=== PATIENT | female | born 2000 | race Caucasian/White ===

== ENCOUNTER 2023-02-16 16:59 | Emergency (ER) | payer OTHER, MEDICAID | END 2023-02-16 17:25 | disposition home or self-care (01) | LOC: KA.ED 16:59 | DX: H10.9 Unspecified conjunctivitis (principal); B37.31 Acute candidiasis of vulva and vagina | CPT/HCPCS: 99282; 99283 ==

== ENCOUNTER 2023-05-04 20:56 | Emergency (ER) | payer MEDICAID ==
[2023-05-04] MEDS: Acetaminophen 325 MG Tab PO ONE (21:49)
== END 2023-05-04 22:15 | disposition home or self-care (01) ==
LOC: KA.ED 20:56 → SUPCPDRO 20:56 → MERGE 20:56 → KA.ED 22:15
DX: S99.922A Unspecified injury of left foot, initial encounter (principal); M54.2 Cervicalgia; Z91.013 Allergy to seafood; W10.8XXA Fall (on) (from) other stairs and steps, initial encounter
CPT/HCPCS: 72125; 73620-LT; 99283; 99284; A9270-GY

== ENCOUNTER 2023-08-08 16:29 | Emergency (ER) | payer MEDICAID ==
[2023-08-08] MEDS ORDERED: Sodium Chloride 0.9% 10 ML Syringe FLUSH PRN (17:05)
[2023-08-08 17:21] LABS: BASOPHILS ABSOLUTE AUTO 0.01 10^3/uL (0.00-0.10); BASOPHILS PERCENT AUTO 0.2 % (0.0-1.0); EOSINOPHILS ABSOLUTE AUTO 0.07 10^3/uL (0.10-0.30); EOSINOPHILS PERCENT AUTO 1.6 % (1.0-3.0); HEMATOCRIT 36.6 % (37.0-47.0); HEMOGLOBIN 12.4 g/dL (12.0-16.0); IMMATURE GRAN ABSOLUTE AUTO 0.01 10^3/uL (0.00-0.50); LYMPHOCYTES ABSOLUTE AUTO 1.71 10^3/uL (1.00-4.00); LYMPHOCYTES PERCENT AUTO 38.4 % (20.0-40.0); MEAN CORPUSCULAR HEMOGLOBIN 30.4 pg (27.0-31.0); MEAN CORPUSCULAR HGB CONC 33.9 g/dL (32.0-36.0); MEAN CORPUSCULAR VOLUME 89.7 fL (82.0-92.0); MEAN PLATELET VOLUME 8.7 fL (7.4-10.4); MONOCYTES ABSOLUTE AUTO 0.42 10^3/uL (0.10-0.80); MONOCYTES PERCENT AUTO 9.4 % (2.0-8.0); NEUTROPHILS ABSOLUTE AUTO 2.23 10^3/uL (2.50-7.00); NEUTROPHILS PERCENT AUTO 50.2 % (50.0-70.0); PLATELET COUNT,PLT 236 10^3/uL (150-400); RED BLOOD CELL COUNT 4.08 10^6/uL (3.80-5.50); WHITE BLOOD CELL COUNT,WBC 4.45 10^3/uL (5.00-10.00)
[2023-08-08 17:37] LABS: APPEARANCE,URINE SLIGHTLY CLOUDY (CLEAR); BILIRUBIN,URINE NEGATIVE (NEGATIVE); COLOR,URINE DARK YELLOW (YELLOW); GLUCOSE,URINE NEGATIVE (NEGATIVE); KETONES,URINE NEGATIVE (NEGATIVE); LEUKOCYTE ESTERASE,URINE NEGATIVE (NEGATIVE); NITRITE,URINE NEGATIVE (NEGATIVE); OCCULT BLOOD,URINE NEGATIVE (NEGATIVE); PH,URINE 5.5 (5.0-9.0); PROTEIN,URINE NEGATIVE (NEGATIVE); UROBILINOGEN,URINE 0.2 E.U./dL (0.2-1.0)
[2023-08-08 17:38] LABS: ALBUMIN 3.81 g/dL (3.40-5.00); ANION GAP 14.3 mmol/L (5-15); BILIRUBIN TOTAL 0.3 mg/dL (0.2-1.0); CALCIUM 8.8 mg/dL (8.7-10.3); CARBON DIOXIDE,CO2 27.7 mmol/L (21.0-32.0); CREATININE 0.69 mg/dL (0.51-1.17); EST CRCL DRUG DOSING (CG) 96.97 mL/min; PROTEIN TOTAL,TP 6.8 g/dL (6.4-8.2)
[2023-08-08 17:47] LABS: IMMATURE GRAN PERCENT AUTO 0.2 % (0.0-5.0)
[2023-08-08] MEDS: Sodium Chloride 0.9% 1,000 ML IV ONE (18:18)
[2023-08-08] MEDS: Ondansetron 4 MG/2 ML SDV IVPUSH ONE (18:18)
[2023-08-08] MEDS: Alum Hydrox/Mag Hydrox/Simeth 30 ML, Lidocaine 2% 15 ML PO ONE (18:23)
== END 2023-08-08 19:19 | disposition home or self-care (01) ==
LOC: KA.ED 16:29
DX: K29.00 Acute gastritis without bleeding (principal); K58.0 Irritable bowel syndrome with diarrhea; Z91.013 Allergy to seafood; Z79.899 Other long term (current) drug therapy; Z86.16 Personal history of COVID-19
CPT/HCPCS: 36415; 80053; 81003; 81025; 83690; 85025; 96361; 96374; 99284; 99284-25; A9270-GY; J2405; J7030

== ENCOUNTER 2024-01-21 11:15 | Emergency (ER) | payer OTHER, MEDICAID ==
[2024-01-21] MEDS: Sodium Chloride 0.9% 1,000 ML IV ONE (12:05)
[2024-01-21 12:09] LABS: BASOPHILS ABSOLUTE AUTO 0.01 10^3/uL (0.00-0.10); BASOPHILS PERCENT AUTO 0.1 % (0.0-1.0); EOSINOPHILS ABSOLUTE AUTO 0.03 10^3/uL (0.10-0.30); EOSINOPHILS PERCENT AUTO 0.3 % (1.0-3.0); HEMOGLOBIN 13.4 g/dL (12.0-16.0); IMMATURE GRAN ABSOLUTE AUTO 0.01 10^3/uL (0.00-0.50); IMMATURE GRAN PERCENT AUTO 0.1 % (0.0-5.0); LYMPHOCYTES ABSOLUTE AUTO 0.42 10^3/uL (1.00-4.00); LYMPHOCYTES PERCENT AUTO 4.2 % (20.0-40.0); MEAN CORPUSCULAR HGB CONC 33.5 g/dL (32.0-36.0); MEAN CORPUSCULAR VOLUME 89.7 fL (82.0-92.0); MEAN PLATELET VOLUME 8.9 fL (7.4-10.4); MONOCYTES ABSOLUTE AUTO 0.78 10^3/uL (0.10-0.80); MONOCYTES PERCENT AUTO 7.8 % (2.0-8.0); NEUTROPHILS ABSOLUTE AUTO 8.69 10^3/uL (2.50-7.00); NEUTROPHILS PERCENT AUTO 87.5 % (50.0-70.0); PLATELET COUNT,PLT 228 10^3/uL (150-400); RED BLOOD CELL COUNT 4.46 10^6/uL (3.80-5.50); RED CELL DISTRIBUTION WIDTH 11.8 % (11.5-14.5); WHITE BLOOD CELL COUNT,WBC 9.94 10^3/uL (5.00-10.00)
[2024-01-21] MEDS: Ondansetron 4 MG/2 ML SDV IVPUSH ONE (12:18)
[2024-01-21 12:24] LABS: ANION GAP 14.2 mmol/L (5-15); CARBON DIOXIDE,CO2 26.2 mmol/L (21.0-32.0); CREATININE 0.81 mg/dL (0.51-1.17); EST CRCL DRUG DOSING (CG) 82.6 mL/min; POTASSIUM,K 3.4 mmol/L (3.5-5.1)
[2024-01-21] MEDS: Loperamide 2 MG Cap PO ONE (12:34)
== END 2024-01-21 13:20 | disposition home or self-care (01) ==
LOC: KA.ED 11:21
DX: K52.9 Noninfective gastroenteritis and colitis, unspecified (principal); Z91.013 Allergy to seafood; Z79.899 Other long term (current) drug therapy
CPT/HCPCS: 80048; 85025; 86140; 96361; 96374; 99284; A9270; J2405; J7030; 99283

== ENCOUNTER 2025-03-01 15:27 | Emergency (ER) | payer MEDICAID, OTHER ==
[2025-03-01] MEDS: diphenhydrAMINE 50 MG/ML SDV IVPUSH ONE (16:19)
[2025-03-01] MEDS: Iopamidol 755 Mg/ML 100 ML Bottle IV ONE (16:46)
== END 2025-03-01 17:40 | disposition home or self-care (01) ==
LOC: KA.ED 15:27
DX: K59.00 Constipation, unspecified (principal); N93.9 Abnormal uterine and vaginal bleeding, unspecified; Z91.013 Allergy to seafood; Z79.899 Other long term (current) drug therapy; Z86.16 Personal history of COVID-19
CPT/HCPCS: 74177; 96374; 99284; J1200; Q9967

== ENCOUNTER 2025-04-30 07:45 | Emergency (ER) | payer OTHER | END 2025-04-30 08:20 | disposition home or self-care (01) | LOC: KA.ED 07:45 | DX: S96.911A Strain of unspecified muscle and tendon at ankle and foot level, right foot, initial encounter (principal); Z91.013 Allergy to seafood; Z79.899 Other long term (current) drug therapy; Z86.16 Personal history of COVID-19; W00.0XXA Fall on same level due to ice and snow, initial encounter; Y93.89 Activity, other specified | CPT/HCPCS: 73610-RT; 99283 ==